=== PATIENT | female | born 1950 | race Caucasian/White ===

== ENCOUNTER 2021-08-27 17:29 | Emergency (ER) | payer MEDICARE, OTHER ==
[~2021-08-27 17:29] MED LIST: ADULT LOW DOSE81 MG PO; CARBIDOPA-LEVO1 EACH PO; DIAZEPAM 5MG TAB5 MG PO; IMDUR 30MG TABL30 MG PO; LOPRESSOR25 MG PO; MS CONTIN100 MG PO; NAMENDA 10MG TA10 MG PO; NEURONTIN600 MG PO; PLAVIX75 MG PO; TIZANIDINE HCL2 M1 PO; VIT B12 PO; VIT D PO; ZOLOFT100 MG PO
[2021-08-27 19:04] LABS: EOSINOPHIL 2.4 % (0-7); HCT 41.5 % (37.0-47.0); HGB 12.9 g/dl (12.5-16.0); LYMPHOCYTE 22.9 % (15-48); MCH 29.9 pg (25.0-31.0); MCHC 31.1 g/dL (32.0-36.0); MCV 96.1 fL (78.0-100.0); MONOCYTE 9.6 % (0-12); MPV 10.7 fL (6.0-9.5); NRBC 0; PLT 248 K/uL (150-400); RBC 4.32 M/uL (4.20-5.40); RDW 12.7 % (11.5-14.0); WBC 10.7 K/uL (4.0-10.5)
[2021-08-27 19:17] LABS: BUN/CREAT RATIO (CALC) 24.2 RATIO; CREATININE 0.66 mg/dL (0.51-0.95); POTASSIUM 4.5 mmol/L (3.5-5.1)
[2021-08-27 21:47] LABS: CORONAVIRUS 2019 SARS-COV-2 NEGATIVE (NEGATIVE); INFLUENZA A NAA NEGATIVE (NEGATIVE)
[2021-08-27] MEDS ORDERED: MEDROL 4MG DOSEP4 MG PO (22:04)
[2021-08-27] MEDS ORDERED: ZPAK PO (22:04)
== END 2021-08-27 22:29 | disposition home or self-care (01) ==
LOC: FER 17:29
PROVIDERS: Nurse Practitioner Family
DX: J44.1 Chronic obstructive pulmonary disease with (acute) exacerbation (principal); K29.70 Gastritis, unspecified, without bleeding; Z88.0 Allergy status to penicillin; Z20.822 Contact with and (suspected) exposure to COVID-19
CPT/HCPCS: 36415; 71045; 80048; 84484; 85025; 94640; 94664; J1100; J7030; Q9967; U0002

== ENCOUNTER 2022-05-27 15:11 | Emergency (ER) | payer MEDICARE, OTHER ==
[~2022-05-27 15:11] MED LIST changes: +MEDROL 4MG DOSEP4 MG PO; +ZPAK PO
[2022-05-27 15:59] LABS: INR 1.05 (0.9-1.2); PROTHROMBIN TIME 13.4 SECONDS (11.9-13.9); PTT 25.3 SECONDS (24.9-34.6)
[2022-05-27 16:08] LABS: BASOPHIL 0.7 % (0-2); EOSINOPHIL 1.7 % (0-7); HCT 49.6 % (37.0-47.0); HGB 15.2 g/dl (12.5-16.0); LYMPHOCYTE 16.2 % (15-48); MCHC 30.6 g/dL (32.0-36.0); MONOCYTE 5.6 % (0-12); MPV 11.3 fL (6.0-9.5); NEUTROPHIL 74.5 % (41-80); NRBC 0; PLT 308 K/uL (150-400); RBC 5.06 M/uL (4.20-5.40); RDW 13.8 % (11.5-14.0)
[2022-05-27 16:11] LABS: WBC 28.3 K/uL (4.0-10.5)
[2022-05-27 16:14] LABS: D-DIMER 7.48 ug/mLFEU (0.00-0.41)
[2022-05-27 16:19] LABS: ALBUMIN 3.1 g/dL (3.4-5.0); BILIRUBIN - TOTAL 0.4 mg/dL (0.2-1.0); BUN/CREAT RATIO (CALC) 13.1 RATIO; C-REACTIVE PROTEIN 3.1 mg/dL (<=0.90); CREATININE 1.07 mg/dL (0.51-0.95); GLOBULIN (CALCULATION) 4.2 g/dL; MAGNESIUM 2.5 mg/dL (1.8-2.4); POTASSIUM 5.4 mmol/L (3.5-5.1); TOTAL PROTEIN 7.3 g/dL (6.4-8.2)
[2022-05-27 17:14] LABS: BILIRUBIN NEGATIVE (NEGATIVE); BLOOD TRACE-INTACT Ery/uL (NEGATIVE); CLARITY CLEAR (CLEAR); COLOR YELLOW (YELLOW); GLUCOSE (U) NORMAL (NORMAL); LEUKOCYTES NEGATIVE Leu/uL (NEGATIVE); NITRITE NEGATIVE (NEGATIVE); PROTEIN 2+ mg/dL (NEGATIVE); SPECIFIC GRAVITY 1.015 (1.001-1.030); UROBILINOGEN 0.2 mg/dL (0.2-1.0)
[2022-05-27 17:34] LABS: AMORPHOUS URATES CRYSTALS MODERATE; BACTERIA 1+
== END 2022-05-27 23:10 | disposition other institution (70) ==
LOC: FER 15:11
PROVIDERS: Emergency Medicine
DX: J44.0 Chronic obstructive pulmonary disease with (acute) lower respiratory infection (principal); J18.9 Pneumonia, unspecified organism; J44.1 Chronic obstructive pulmonary disease with (acute) exacerbation; J81.0 Acute pulmonary edema; I21.4 Non-ST elevation (NSTEMI) myocardial infarction; J96.01 Acute respiratory failure with hypoxia; Z20.822 Contact with and (suspected) exposure to COVID-19; Z88.0 Allergy status to penicillin
CPT/HCPCS: 31500; 36415; 36600; 71045; 71275; 80053; 81001; 82728; 82803; 83605; 83735; 83880; 84145; 84439; 84484; 85025; 85379; 85610; 85730; 86140; 87040; 92950; 93005; 94640; 96365; 96366; 96367; 96375; 96376; C9113; J1644; J2250; J2930; J3010; J7050; Q9967; U0002